=== PATIENT | male | born 1995 | race African-American/Black ===

== ENCOUNTER 2019-05-06 07:17 | Emergency (ER) | payer SELFPAY ==
[2019-05-06 07:32] VITALS: BP 144/83; PULSE 95; TEMP 97.9; BMI 21.2
[2019-05-06] MEDS ORDERED: IBUPROFEN 600 MG TABLET (FP) PO ONE ×2 (08:06→08:12)
--- NOTE | 2019-05-06 09:00 | PDOC ---
History of Present Illness - General Chief Complaint: Sore Throat Stated Complaint: THROAT PAIN Time Seen by Provider: 05/06/19 08:04 History Source: Patient - History of Present Illness Initial Comments: 05/06/19 08:56 23-year-old male denies past medical history presents complaining of left-sided throat pain, left ear pain and hoarseness x1 week. In the morning feels like he needs to spit up phlegm and sometimes spits up small amounts of bloody sputum. Reports the symptoms improve throughout the day. Denies spitting up blood clots, fever, chills, difficulty breathing, difficulty swallowing, neck swelling, shortness of breath, chest pain, abdominal pain, body aches or any other symptoms. Able to tolerate p.o. ROS: GENERAL/CONSTITUTIONAL: No fever, chills, weakness, dizziness HEAD, EYES, EARS, NOSE AND THROAT: Left-sided throat pain, left ear pain, no changes in vision CARDIOVASCULAR: No chest pain RESPIRATORY: No shortness of breath or cough GASTROINTESTINAL: No pain, nausea, vomiting, diarrhea or constipation GENITOURINARY: No dysuria MUSCULOSKELETAL: No neck or back pain SKIN: No rash NEUROLOGIC: No headache, vertigo, loss of consciousness, or loss of sensation PE: GENERAL: well-appearing, NAD HEAD: NCAT EYES: Pupils equal, round and reactive to light, sclera anicteric, conjunctiva clear ENT: Normal ear canals bilaterally, pharynx: Minimal erythema, no exudate, uvula midline NECK: No lymphadenopathy palpated, supple CHEST: nontender RESP: clear, no w/r/r CARDIO: rrr, no m/g/r ABD: +BS, soft, nontender, non distended BACK: no midline spinal ttp, no CVAT EXTREMITIES: Normal range of motion, no edema NEUROLOGICAL: Normal speech, normal gait SKIN: Warm, Dry Is this a multiple visit Asthma Patient?: No Past History - Past Medical History Allergies/Adverse Reactions: Allergies Allergy/AdvReac Type Severity Reaction Status Date / Time No Known Allergies Allergy Verified 05/06/19 07:26 Home Medications: Ambulatory Orders Amoxicillin - [Amoxicillin 500mg Capsule -] 500 mg PO BID #10 capsule 05/06/19 CVA: No COPD: No CHF: No - Immunization History Immunization Up to Date: Yes - Psycho Social/Smoking Cessation Hx Smoking History: Never smoked Information on smoking cessation initiated: No Hx Alcohol Use: No Drug/Substance Use Hx: No *Physical Exam - Vital Signs Last Vital Signs Temp Pulse Resp BP Pulse Ox 97.9 F 95 H 17 144/83 97 05/06/19 07:26 05/06/19 07:26 05/06/19 07:26 05/06/19 07:26 05/06/19 07:26 ED Treatment Course - Medications Given in the ED: ED Medications Discontinued Medications Generic Name Dose Route Start Last Admin Trade Name [place] PRN Reason Stop Dose Admin Ibuprofen 600 mg 05/06/19 08:06 05/06/19 08:15 Motrin - PO 05/06/19 08:07 600 mg ONCE ONE Administration Medical Decision Making - Medical Decision Making 05/06/19 09:04 23-year-old presents complaining of left throat pain, left ear pain x1 week with hoarseness. Minimal erythema to pharynx, no exudate Rapid strep negative will treat with amoxicillin 500 mg 1 tablet twice a day for 5 days Return precautions discussed Follow-up with your primary care doctor within 1 week Discharge - Discharge Information Problems reviewed: Yes Clinical Impression/Diagnosis: Throat pain Condition: Stable Disposition: HOME - Admission No - Follow up/Referral - Patient Discharge Instructions Additional Instructions: Take amoxicillin 500 mg 1 tablet twice a day for 5 days Remain hydrated If you develop difficulty swallowing, difficulty speaking, neck swelling, worsening throat pain return to ED - Post Discharge Activity Work/Back to School Note: Back to Work
== END 2019-05-06 09:16 | disposition home or self-care (01) ==
LOC: JER 07:17
CPT/HCPCS: 87070; 87880; 99281-25

== ENCOUNTER 2022-09-02 19:16 | Emergency (ER) | payer OTHER ==
[2022-09-02 19:22] VITALS: BP 132/77; PULSE 77; RESP 18; TEMP 98; BMI 22.7
[2022-09-02] MEDS ORDERED: ONDANSETRON 4 MG/2 ML VIAL ONE (19:38)
[2022-09-02] MEDS ORDERED: morphine SULFATE 4 MG/ML VIAL ONE (19:42)
[2022-09-02] MEDS ORDERED: ACETAMINOPHEN 1000 MG/100 ML BAG IVPB ONE (20:05)
[2022-09-02] MEDS ORDERED: morphine CARPU-JECT 4 MG/1 ML DISP.SYRIN IVPUSH ONE (20:05)
[2022-09-02] MEDS ORDERED: ONDANSETRON 4 MG/2 ML VIAL IVPUSH ONE (20:06)
[2022-09-02] MEDS ORDERED: LACTATED RINGERS SOLUTION 1,000 ML/1,000 ML INFUS.BAG IV STA (20:06)
[2022-09-02 20:21] LABS: BASO % 0.2 % (0-2.0); HEMATOCRIT 42.2 % (35.4-49); HEMOGLOBIN 14.7 GM/dL (11.7-16.9); LYMPH % 7.9 % (8-40); MCH 30.2 pg (25.7-33.7); MCHC 34.9 g/dl (32.0-35.9); MEAN CELL VOLUME 86.7 fl (80-96); MEAN PLT VOLUME 8.3 fl (7.5-11.1); MONO % 3.5 % (3.8-10.2); NEUT % 88.4 % (42.8-82.8); PLATELET COUNT 268 10^3/uL (134-434); RBC 4.87 M/mm3 (4.00-5.60); RDW 12.2 % (11.9-15.9); WHITE BLOOD COUNT 7.6 K/mm3 (4.0-10.0)
[2022-09-02 20:25] LABS: INR 1.21 (0.83-1.09)
[2022-09-02 20:28] LABS: ACTIVATED PTT 29.2 SECONDS (25.2-36.5)
[2022-09-02 20:46] LABS: CALCIUM 9.5 mg/dL (8.5-10.1)
[2022-09-02 20:47] LABS: ALBUMIN 4.4 g/dl (3.4-5.0); BLOOD UREA NITROGEN 10.2 mg/dL (7-18); MAGNESIUM 1.6 mg/dL (1.8-2.4)
[2022-09-02 20:51] LABS: BILIRUBIN,TOTAL 1.3 mg/dL (0.2-1); TOT PROT 8.2 g/dl (6.4-8.2)
[2022-09-02] MEDS ORDERED: MAGNESIUM SULF 50% (8.12 MEQ/2 ML-1 GM VIAL) IVPB ONE (21:36)
[2022-09-02] MEDS ORDERED: MAGNESIUM SULFATE IN WATER 2 GM/50 ML IVPB IVPB ONE (21:50)
== END 2022-09-02 23:33 | disposition home or self-care (01) ==
LOC: JER 19:16
DX: K52.9 Noninfective gastroenteritis and colitis, unspecified (principal); R10.9 Unspecified abdominal pain
CPT/HCPCS: 0241U-QW; 36415; 74177-TC; 80053; 83690; 83735; 85025; 85610; 85730; 86850; 86900; 86901; 99285-25

== ENCOUNTER 2022-11-03 12:36 | Emergency (ER) | payer OTHER ==
[2022-11-03 12:45] VITALS: BP 111/72; PULSE 83; RESP 18; TEMP 98.4; BMI 22.2
[2022-11-03] MEDS ORDERED: FAMOTIDINE 20 MG/50 ML IVPB 20 MG/50 ML MG IVPB ONE ×2 (13:48→13:59)
[2022-11-03] MEDS ORDERED: KETOROLAC TROMETHAMINE 30 MG/1 ML VIAL IVPUSH ONE (13:48)
[2022-11-03] MEDS ORDERED: SODIUM CHLORIDE 0.9% 500 ML INFUS.BAG IV ONE (13:48)
[2022-11-03] MEDS ORDERED: ONDANSETRON 4 MG/2 ML VIAL IVPUSH ONE (13:48)
[2022-11-03] MEDS ORDERED: KETOROLAC TROMETHAMINE 30 MG/1 ML VIAL ONE (13:59)
[2022-11-03] MEDS ORDERED: ONDANSETRON 4 MG/2 ML VIAL ONE ×2 (13:59→14:00)
[2022-11-03 14:20] LABS: BASO % 0.3 % (0-2.0); HEMATOCRIT 44.8 % (35.4-49); LYMPH % 12.7 % (8-40); MCH 29.7 pg (25.7-33.7); MCHC 33.4 g/dl (32.0-35.9); MEAN PLT VOLUME 8.1 fl (7.5-11.1); PLATELET COUNT 303 10^3/uL (134-434); RBC 5.04 M/mm3 (4.00-5.60); RDW 12.5 % (11.9-15.9); WHITE BLOOD COUNT 10.9 K/mm3 (4.0-10.0)
[2022-11-03 14:39] LABS: POTASSIUM 3.8 mmol/L (3.5-5.1)
[2022-11-03 14:41] LABS: CALCIUM 9.6 mg/dL (8.5-10.1)
[2022-11-03 14:42] LABS: ALBUMIN 4.5 g/dl (3.4-5.0); BLOOD UREA NITROGEN 8.2 mg/dL (7-18)
[2022-11-03 14:45] LABS: CREATININE 0.8 mg/dL (0.55-1.3)
[2022-11-03 14:46] LABS: BILIRUBIN,TOTAL 1.2 mg/dL (0.2-1); TOT PROT 8.1 g/dl (6.4-8.2)
== END 2022-11-03 17:36 | disposition home or self-care (01) ==
LOC: JER 12:36
PROC: 3E033GC Introduction of Other Therapeutic Substance into Peripheral Vein, Percutaneous Approach (ICD-10-PCS; principal; 2022-11-03)
PROC: 3E033NZ Introduction of Analgesics, Hypnotics, Sedatives into Peripheral Vein, Percutaneous Approach (ICD-10-PCS; 2022-11-03)
PROC: 3E033GC Introduction of Other Therapeutic Substance into Peripheral Vein, Percutaneous Approach (ICD-10-PCS; 2022-11-03)
DX: R10.84 Generalized abdominal pain (principal); R11.2 Nausea with vomiting, unspecified
CPT/HCPCS: 36415; 74177-TC; 80053; 85025; 99285-25; Q9967

== ENCOUNTER 2023-03-10 20:19 | Emergency (ER) | payer OTHER ==
[2023-03-10 20:25] VITALS: BMI 22.2
[2023-03-10] MEDS ORDERED: SODIUM CHLORIDE 1,000 ML IV STA (21:25)
[2023-03-10] MEDS ORDERED: ONDANSETRON 4 MG/2 ML VIAL IVPUSH ONE (21:25)
[2023-03-10] MEDS ORDERED: ACETAMINOPHEN 1000 MG/100 ML BAG IVPB ONE (21:25)
[2023-03-10] MEDS ORDERED: ONDANSETRON 4 MG/2 ML VIAL ONE (22:58)
[2023-03-10] MEDS ORDERED: ACETAMINOPHEN INJECTION 100 ML IVPB ONE (22:58)
[2023-03-10 23:04] LABS: HEMATOCRIT 37.8 % (35.4-49); HEMOGLOBIN 13.1 GM/dL (11.7-16.9); MCHC 34.6 g/dl (32.0-35.9); MEAN CELL VOLUME 86.6 fl (80-96); MEAN PLT VOLUME 7.5 fl (7.5-11.1); PLATELET COUNT 228 10^3/uL (134-434); RBC 4.36 M/mm3 (4.00-5.60); RDW 12.6 % (11.9-15.9); WHITE BLOOD COUNT 6.7 K/mm3 (4.0-10.0)
[2023-03-10 23:44] LABS: POTASSIUM 3.5 mmol/L (3.5-5.1)
[2023-03-10 23:46] LABS: CALCIUM 9.1 mg/dL (8.5-10.1)
[2023-03-10 23:47] LABS: ALBUMIN 4.4 g/dl (3.4-5.0)
[2023-03-10 23:50] LABS: CREATININE 0.9 mg/dL (0.55-1.3)
[2023-03-10 23:51] LABS: TOT PROT 7.9 g/dl (6.4-8.2)
[2023-03-11] MEDS ORDERED: FAMOTIDINE 20 MG/50 ML IVPB 20 MG/50 ML MG IVPB ONE ×2 (00:42→01:05)
[2023-03-11] MEDS ORDERED: PANTOPRAZOLE SODIUM 40 MG VIAL IVPUSH ONE (00:42)
[2023-03-11] MEDS ORDERED: SUCRALFATE 1 GM/10 ML UNIT DOSE CUPS PO ONE (00:43)
[2023-03-11] MEDS ORDERED: MAG HYDROX/AL HYDROX/SIMETH 30 ML UNIT-DOSE CUP PO ONE (00:43)
[2023-03-11] MEDS ORDERED: SUCRALFATE 1 GM TABLET (FP) ONE (01:04)
[2023-03-11] MEDS ORDERED: PANTOPRAZOLE SODIUM 40 MG VIAL ONE (01:05)
[2023-03-11] MEDS ORDERED: MAG HYDROX/AL HYDROX/SIMETH 30 ML UNIT-DOSE CUP ONE (01:05)
[2023-03-11] MEDS ORDERED: HALOPERIDOL LACTATE 5 MG/ML IM ONE ×2 (02:40→03:54)
[2023-03-11] MEDS ORDERED: LACTATED RINGERS SOLUTION 1000 ML INFUS.BAG IV ONE (02:42)
[2023-03-11 03:06] VITALS: BP 113/73; PULSE 61; RESP 13; TEMP 98.4
[2023-03-11] MEDS ORDERED: HALOPERIDOL LACTATE 5 MG/ML ONE (03:37)
== END 2023-03-11 05:43 | disposition home or self-care (01) ==
LOC: JER 20:19
PROC: 3E033NZ Introduction of Analgesics, Hypnotics, Sedatives into Peripheral Vein, Percutaneous Approach (ICD-10-PCS; 2023-03-10)
PROC: 3E033GC Introduction of Other Therapeutic Substance into Peripheral Vein, Percutaneous Approach (ICD-10-PCS; 2023-03-10)
PROC: 3E0337Z Introduction of Electrolytic and Water Balance Substance into Peripheral Vein, Percutaneous Approach (ICD-10-PCS; 2023-03-10)
PROC: 3E033GC Introduction of Other Therapeutic Substance into Peripheral Vein, Percutaneous Approach (ICD-10-PCS; principal; 2023-03-11)
PROC: 3E033GC Introduction of Other Therapeutic Substance into Peripheral Vein, Percutaneous Approach (ICD-10-PCS; 2023-03-11)
PROC: 3E023GC Introduction of Other Therapeutic Substance into Muscle, Percutaneous Approach (ICD-10-PCS; 2023-03-11)
DX: R10.32 Left lower quadrant pain (principal); R50.9 Fever, unspecified; R11.10 Vomiting, unspecified; R19.7 Diarrhea, unspecified; R10.11 Right upper quadrant pain; Z20.822 Contact with and (suspected) exposure to COVID-19
CPT/HCPCS: 0241U-QW; 36415; 76705-TC; 80053; 83605; 83690; 85027; 99284-25

== ENCOUNTER 2023-03-11 23:13 | Emergency (ER) | payer OTHER ==
[2023-03-11 23:19] VITALS: BP 115/87; PULSE 94; RESP 17; TEMP 99.2; BMI 21.9
[2023-03-11] MEDS ORDERED: LACTATED RINGERS SOLUTION 1000 ML INFUS.BAG IV ONE (23:58)
[2023-03-11] MEDS ORDERED: HALOPERIDOL LACTATE 5 MG/ML IM ONE (23:58)
[2023-03-11] MEDS ORDERED: ONDANSETRON 4 MG/2 ML VIAL IVPUSH ONE (23:58)
[2023-03-12] MEDS ORDERED: HALOPERIDOL LACTATE 5 MG/ML ONE (00:18)
== END 2023-03-12 01:56 | disposition home or self-care (01) ==
LOC: JER 23:13
PROC: 3E023GC Introduction of Other Therapeutic Substance into Muscle, Percutaneous Approach (ICD-10-PCS; principal; 2023-03-11)
DX: R11.2 Nausea with vomiting, unspecified (principal); R10.9 Unspecified abdominal pain; F12.188 Cannabis abuse with other cannabis-induced disorder
CPT/HCPCS: 99284-25

== ENCOUNTER 2023-07-09 12:19 | Observation (INO) | payer OTHER ==
[2023-07-09 12:25] VITALS: RESP 18
[2023-07-09] MEDS ORDERED: FAMOTIDINE 20 MG/50 ML IVPB 20 MG/50 ML MG IVPB ONE (12:52)
[2023-07-09] MEDS ORDERED: ONDANSETRON 4 MG/2 ML VIAL ONE (12:52)
[2023-07-09] MEDS ORDERED: ACETAMINOPHEN INJECTION 100 ML IVPB ONE (12:52)
[2023-07-09] MEDS: ACETAMINOPHEN 1000 MG/100 ML BAG IVPB ONE (13:12)
[2023-07-09] MEDS: SODIUM CHLORIDE 0.9% 500 ML INFUS.BAG IV ONE (13:12)
[2023-07-09] MEDS: FAMOTIDINE 20 MG/50 ML IVPB 20 MG/50 ML MG IVPB ONE (13:13)
[2023-07-09] MEDS: ONDANSETRON 4 MG/2 ML VIAL IVPUSH ONE (13:14)
[2023-07-09 13:18] LABS: BASO % 0.5 % (0-2.0); EOS % 0.1 % (0-4.5); HEMATOCRIT 37.9 % (35.4-49); LYMPH % 16.4 % (8-40); MCH 30.1 pg (25.7-33.7); MCHC 34.3 g/dl (32.0-35.9); MEAN CELL VOLUME 87.7 fl (80-96); MEAN PLT VOLUME 7.4 fl (7.5-11.1); MONO % 4.2 % (3.8-10.2); NEUT % 78.8 % (42.8-82.8); PLATELET COUNT 238 10^3/uL (134-434); RBC 4.32 M/mm3 (4.00-5.60); RDW 12.4 % (11.9-15.9); WHITE BLOOD COUNT 6.3 K/mm3 (4.0-10.0)
[2023-07-09 13:54] LABS: CALCIUM 9.5 mg/dL (8.5-10.1)
[2023-07-09 13:55] LABS: ALBUMIN 4.7 g/dl (3.4-5.0); BLOOD UREA NITROGEN 6.7 mg/dL (7-18)
[2023-07-09 14:00] LABS: BILIRUBIN,TOTAL 0.6 mg/dL (0.2-1); TOT PROT 7.9 g/dl (6.4-8.2)
[2023-07-09] MEDS ORDERED: METOCLOPRAMIDE HCL INJECTION 10 MG/2 ML VIAL ONE (14:11)
[2023-07-09] MEDS ORDERED: KETOROLAC TROMETHAMINE 30 MG/1 ML VIAL ONE (14:11)
[2023-07-09] MEDS ORDERED: MAG HYDROX/AL HYDROX/SIMETH 30 ML UNIT-DOSE CUP ONE (14:11)
[2023-07-09 14:22] LABS: CREATININE 0.9 mg/dL (0.55-1.3)
[2023-07-09] MEDS: KETOROLAC TROMETHAMINE 30 MG/1 ML VIAL IVPUSH ONE (14:32)
[2023-07-09] MEDS: MAG HYDROX/AL HYDROX/SIMETH 30 ML UNIT-DOSE CUP PO ONE (14:32)
[2023-07-09] MEDS: METOCLOPRAMIDE HCL INJECTION 10 MG/2 ML VIAL IVPUSH ONE (14:32)
[2023-07-09] MEDS: LIDOCAINE VISCOUS 2% ORAL/TOP 15 ML UNIT-DOSE CUP MM ONE (15:29)
[2023-07-09] MEDS ORDERED: HALOPERIDOL LACTATE 5 MG/ML ONE (15:42)
[2023-07-09] MEDS: HALOPERIDOL LACTATE 5 MG/ML IM ONE (15:50)
[2023-07-09] MEDS ORDERED: ONDANSETRON 4 MG/2 ML VIAL IVPUSH PRN (17:33)
[2023-07-09] MEDS ORDERED: ACETAMINOPHEN 500 MG TABLET (FP) PO PRN (17:34)
[2023-07-09] MEDS: POTASSIUM CHLORIDE ORAL LIQUID 20 MEQ/15 ML PO ONE (18:24)
[2023-07-09] MEDS ORDERED: KCL 10 MEQ IVPB 10 MEQ/100 ML INFUS.BAG IVPB ONE (18:36)
[2023-07-09] MEDS: LACTATED RINGERS SOLUTION 1,000 ML/1,000 ML INFUS.BAG IV SCH (18:45)
[2023-07-09] MEDS: KCL 10 MEQ IVPB 10 MEQ/100 ML INFUS.BAG IVPB SCH (18:46)
[2023-07-09 21:01] VITALS: BMI 22.3
[2023-07-10] MEDS ORDERED: IOHEXOL (OMNIPAQUE PO) 12 MG/ML - 500 ML BOTTLE PO ONE (06:25)
[2023-07-10] MEDS ORDERED: LACTATED RINGERS SOLUTION 1,000 ML/1,000 ML INFUS.BAG IV SCH (09:09)
[2023-07-10 09:12] LABS: BASO % 0.3 % (0-2.0); HEMATOCRIT 35.1 % (35.4-49); LYMPH % 20.5 % (8-40); MCH 30.3 pg (25.7-33.7); MCHC 34.1 g/dl (32.0-35.9); MEAN CELL VOLUME 88.8 fl (80-96); MEAN PLT VOLUME 7.7 fl (7.5-11.1); MONO % 7.8 % (3.8-10.2); NEUT % 71.4 % (42.8-82.8); PLATELET COUNT 221 10^3/uL (134-434); RBC 3.95 M/mm3 (4.00-5.60); RDW 12.6 % (11.9-15.9); WHITE BLOOD COUNT 9.4 K/mm3 (4.0-10.0)
[2023-07-10 09:29] LABS: POTASSIUM 3.8 mmol/L (3.5-5.1)
[2023-07-10 09:34] LABS: BLOOD UREA NITROGEN 7.7 mg/dL (7-18); CALCIUM 8.7 mg/dL (8.5-10.1)
[2023-07-10 10:19] LABS: COCAINE, UR NEGATIVE (NEGATIVE); METHADONE, UR NEGATIVE (NEGATIVE); OPIATES, URI NEGATIVE (NEGATIVE); PHENCYCLIDINE,URINE NEGATIVE (NEGATIVE); URINE AMPHETAMINES NEGATIVE (NEGATIVE); URINE BARBITURATES NEGATIVE (NEGATIVE); URINE BENZODIAZEPINES NEGATIVE (NEGATIVE)
[2023-07-10 14:53] VITALS: BP 121/81; PULSE 61; TEMP 97.9
== END 2023-07-10 16:24 | disposition home or self-care (01) ==
LOC: JER 12:19 → JERBED 18:13 → J6S 19:59
PROVIDERS: ADMIT Internal Medicine; ATTEND Internal Medicine
PROC: 3E033NZ Introduction of Analgesics, Hypnotics, Sedatives into Peripheral Vein, Percutaneous Approach (ICD-10-PCS; principal; 2023-07-09)
PROC: 3E033GC Introduction of Other Therapeutic Substance into Peripheral Vein, Percutaneous Approach (ICD-10-PCS; 2023-07-09)
PROC: 3E023GC Introduction of Other Therapeutic Substance into Muscle, Percutaneous Approach (ICD-10-PCS; 2023-07-09)
PROC: 3E0333Z Introduction of Anti-inflammatory into Peripheral Vein, Percutaneous Approach (ICD-10-PCS; 2023-07-09)
PROC: 3E0337Z Introduction of Electrolytic and Water Balance Substance into Peripheral Vein, Percutaneous Approach (ICD-10-PCS; 2023-07-09)
DX: F12.988 Cannabis use, unspecified with other cannabis-induced disorder (principal); R11.2 Nausea with vomiting, unspecified
CPT/HCPCS: 0241U-QW; 36415; 74177-TC; 76705-TC; 80048; 80053; 80307; 83690; 85025; 93005; 93010; 96361; 96365; 96367; 96372; 96375; 99285-25; G0378; G0397; J0131; Q9967

== ENCOUNTER 2024-03-02 09:41 | Emergency (ER) | payer SELFPAY ==
[2024-03-02 09:44] VITALS: TEMP 98.1; BMI 22.5
[2024-03-02] MEDS ORDERED: HALOPERIDOL LACTATE 5 MG/ML ONE (10:25)
[2024-03-02] MEDS: HALOPERIDOL LACTATE 5 MG/ML IM ONE (10:36)
[2024-03-02] MEDS ORDERED: FAMOTIDINE 20 MG TABLET ONE (13:08)
[2024-03-02] MEDS ORDERED: ONDANSETRON *ODT* 4 MG TABLET ONE (13:08)
[2024-03-02] MEDS: ONDANSETRON 4 MG TABLET PO ONE (13:35)
[2024-03-02] MEDS: FAMOTIDINE 20 MG TABLET PO ONE (13:35)
[2024-03-02 13:41] VITALS: BP 117/53; PULSE 67; RESP 12
== END 2024-03-02 13:54 | disposition home or self-care (01) ==
LOC: JER 09:41
DX: F12.188 Cannabis abuse with other cannabis-induced disorder (principal); R11.2 Nausea with vomiting, unspecified
CPT/HCPCS: 99284-25

== ENCOUNTER 2024-11-04 08:36 | Inpatient (IN) | payer OTHER ==
[2024-11-04 08:47] VITALS: BMI 21.2
[2024-11-04] MEDS ORDERED: FAMOTIDINE 20 MG/50 ML IVPB 20 MG/50 ML MG IVPB ONE (09:17)
[2024-11-04] MEDS ORDERED: METOCLOPRAMIDE HCL INJECTION 10 MG/2 ML VIAL ONE (09:17)
[2024-11-04] MEDS ORDERED: LORazepam 2 MG/ML SDV VIAL ONE (09:17)
[2024-11-04 09:24] LABS: ABSOLUTE IMMATURE GRANULOCYTES 0.02 x10^3/uL (0.0-0.031); BASOPHILS # 0.03 x10^3/uL (0.01-0.08); EOSINOPHIL % 0.3 % (0.8-7.0); EOSINOPHILS # 0.02 x10^3/uL (0.04-0.54); HEMATOCRIT 36.7 % (40.1-51.0); HEMOGLOBIN 12.7 g/dL (13.7-17.5); MCHC 34.6 g/dl (32.3-36.5); MEAN CELL VOLUME 85.5 fl (79.0-92.2); MONOCYTE # 0.39 x10^3/uL (0.30-0.82); MONOCYTE % 5.9 % (5.3-12.2); PLATELET COUNT 223 x10^3/uL (163-337); RDW 11.5 % (11.9-15.3)
[2024-11-04] MEDS: SODIUM CHLORIDE 1,000 ML IV STA ×2 (09:29→14:45)
[2024-11-04] MEDS: METOCLOPRAMIDE HCL INJECTION 10 MG/2 ML VIAL IVPUSH ONE (09:29)
[2024-11-04] MEDS: FAMOTIDINE 20 MG/50 ML IVPB 20 MG/50 ML MG IVPB ONE (09:29)
[2024-11-04 09:40] LABS: PH,URINE 8.5 (5.0-8.0); URINE APPEARANCE CLEAR; URINE BILIRUBIN NEGATIVE (NEGATIVE); URINE COLOR YELLOW; URINE GLUCOSE (UA) NEGATIVE (NEGATIVE); URINE KETONE NEGATIVE (NEGATIVE); URINE LEUK ESTERASE NEGATIVE (NEGATIVE); URINE NITRITE NEGATIVE (NEGATIVE); URINE PROTEIN NEGATIVE (NEGATIVE); URINE UROBILINOGEN 0.2 mg/dL (0.2-1.0)
[2024-11-04 09:54] LABS: COCAINE, UR NEGATIVE (NEGATIVE); URINE BENZODIAZEPINES NEGATIVE (NEGATIVE)
[2024-11-04 09:55] LABS: POTASSIUM 3.9 mmol/L (3.5-5.1)
[2024-11-04 09:55] LABS: OPIATES, URI NEGATIVE (NEGATIVE); PHENCYCLIDINE,URINE NEGATIVE (NEGATIVE); URINE BARBITURATES NEGATIVE (NEGATIVE)
[2024-11-04 09:57] LABS: BLOOD UREA NITROGEN 8.4 mg/dL (7-18); CALCIUM 9.4 mg/dL (8.5-10.1)
[2024-11-04 09:58] LABS: ALBUMIN 4.4 g/dl (3.4-5.0); MAGNESIUM 1.8 mg/dL (1.8-2.4)
[2024-11-04 10:02] LABS: TOT PROT 7.5 g/dl (6.4-8.2)
[2024-11-04 10:12] LABS: METHADONE, UR NEGATIVE (NEGATIVE)
[2024-11-04 10:16] LABS: BILIRUBIN,TOTAL 0.6 mg/dL (0.2-1)
[2024-11-04 10:26] LABS: URINE AMPHETAMINES NEGATIVE (NEGATIVE)
[2024-11-04] MEDS ORDERED: ONDANSETRON 4 MG/2 ML VIAL ONE (12:52)
[2024-11-04] MEDS: ONDANSETRON 4 MG/2 ML VIAL IVPUSH ONE (13:35)
[2024-11-04] MEDS ORDERED: HALOPERIDOL LACTATE 5 MG/ML ONE (14:23)
[2024-11-04] MEDS: HALOPERIDOL LACTATE 5 MG/ML IM ONE (14:45)
[2024-11-04 14:47] VITALS: RESP 18
[2024-11-04] MEDS ORDERED: ONDANSETRON 4 MG/2 ML VIAL IVPUSH PRN (14:53)
[2024-11-04] MEDS: SODIUM CHLORIDE 1,000 ML IV SCH (17:44)
[2024-11-04] MEDS: ACETAMINOPHEN 1000 MG/100 ML BAG IVPB PRN (17:51)
[2024-11-04] MEDS ORDERED: LIDOCAINE 4% PATCH TP SCH (18:00)
[2024-11-04] MEDS: METHYL SALICYLATE/MENTHOL 30 GM TUBE TP SCH (19:05)
[2024-11-04 20:52] VITALS: BP 106/60; PULSE 57; TEMP 98.4
[2024-11-04] MEDS: AMITRIPTYLINE HCL 25 MG TABLET PO SCH (23:09)
[2024-11-04] MEDS: MELATONIN 1 MG TABLET PO SCH (23:10)
[2024-11-04] MEDS: PANTOPRAZOLE SODIUM 40 MG VIAL IVPUSH SCH (23:10)
[2024-11-05] MEDS ORDERED: LIDOCAINE PATCH REMOVAL MC SCH (06:00)
[2024-11-05] MEDS ORDERED: METHYL SALICYLATE/MENTHOL 30 GM TUBE TP SCH (10:00)
[2024-11-05] MEDS ORDERED: ENOXAPARIN NA (PORCINE) 40 MG/0.4 ML DISP.SYRIN SQ SCH (10:00)
== END 2024-11-04 22:32 | disposition left against medical advice (07) | DRG 770 ==
LOC: JER 08:36 → JERBED 14:07 → J5S 15:00
PROVIDERS: ADMIT Internal Medicine; ATTEND Internal Medicine
DX: F12.188 Cannabis abuse with other cannabis-induced disorder (principal); R11.2 Nausea with vomiting, unspecified; D64.9 Anemia, unspecified; G47.00 Insomnia, unspecified; M79.7 Fibromyalgia; K59.00 Constipation, unspecified; R10.13 Epigastric pain; R45.1 Restlessness and agitation
CPT/HCPCS: 0241U-QW; 36415; 71045-TC-FY; 74177-TC; 80053; 80307; 81003; 83690; 83735; 84100; 85025; 85027; 93005; 93010; 99285-25; G0378; Q9967